=== PATIENT | female | born 1955 | race Caucasian/White ===

== ENCOUNTER 2017-06-12 13:36 | Inpatient (IN) | payer MEDICAID ==
[~2017-06-12] VITALS: Ht 167.6 cm; Wt 79.0 kg
--- NOTE | ~2017-06-12 | PR ---
[place], [place] PROGRESS NOTE NAME: SUDARSHAN DAVIES UNIT #: [id number] ROOM: 406 DOCTOR: NAMAN BONDS MD BIRTHDATE: [birth year] DOS: 06/14/2017 SUBJECTIVE: The patient about the same, somewhat better, try to speak a few words this morning. OBJECTIVE: VITAL SIGNS: Blood pressure 142/77, heart rate 73 beats per minute, breathing 20 times per minute, temperature 98 degrees Fahrenheit. GENERAL: Generalized weakness. All four extremity contractures. HEENT AND NECK: Exam within normal limits. CARDIOVASCULAR SYSTEM: Heart rate is regular in rate and rhythm. S1 and S2 normally audible. LUNGS: Clear to auscultation. ABDOMEN: Soft, nontender. No obvious organomegaly. Bowel sounds are present. IMPRESSION: 1. The patient is going to Behavioral Health Unit under the care of Dr. Jimmy Murphy for continued care and behavioral issues. 2. Major depression, recurrent, moderate, being treated. The patient on Vraylar now, started by Dr. Murphy. 3. Behavioral issues, schizoaffective disorder. The patient on mirtazapine. 4. Generalized anxiety disorder, treated with lorazepam as needed. 5. Advanced physical disability. The patient not eating and not walking. The patient working with physical therapy. NAMAN BONDS MD CM:PNTRANS [id number] NAMAN BONDS MD 06/14/17 1242 interface
--- NOTE | ~2017-06-12 | DS ---
[place], [place] DISCHARGE SUMMARY NAME: SUDARSHAN DAVIES UNIT #: [id number] ROOM: 406 DOCTOR: NAMAN BONDS MD BIRTHDATE: [birth year] DOS: 06/13/2017 DISCHARGE DIAGNOSES: 1. Major depression, recurrent. 2. Schizoaffective disorder. 3. History of cerebral palsy. 4. Generalized anxiety disorder. 5. 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 HOSPITAL COURSE: The patient was admitted through my office when brought over by her brother and [id number], who take care of the patient at home because the patient was unable to ambulate and had decreasing function and she was not talking, eating or cooperating. After admission, the patient was kept on IV fluids and psych consult was obtained with Dr. Murphy who has agreed to take her to the Behavioral Health Unit and changed some of her medications. The patient to be treated for: 1. Major depression, recurrent, moderate. 2. Moderate and inability to talk or communicate or walk. 3. Severe generalized anxiety disorder, to be treated and followed. Dr. Murphy has put her on Vraylar and mirtazapine. 4. Physical disability. The patient started on physical therapy. 5. Schizoaffective disorder, to be followed and treated by Dr. Murphy. LABORATORY DATA: Normal serum electrolytes. Hemoglobin 11.8, no leukocytosis. Urine cultures have been negative. Hypokalemia resolved with extra potassium supplements. Potassium level is normal at 3.6 now. DISCHARGE MANAGEMENT: Mirtazapine 15 mg at bedtime, Vraylar 1.5 mg at bedtime, ibuprofen 600 mg daily as needed for pain, lorazepam 0.5 mg b.i.d. [place], [place] DISCHARGE SUMMARY NAME: SUDARSHAN DAVIES UNIT #: [id number] ROOM: 406 DOCTOR: NAMAN BONDS MD BIRTHDATE: [birth year] NAMAN BONDS MD CM:DISCHARG 180 20 NAMAN BONDS MD 06/13/172219 interface
--- NOTE | ~2017-06-12 | CON ---
[place], [place] REPORT OF CONSULTATION NAME: SUDARSHAN DAVIES UNIT #: [id number] ROOM: 406 DOCTOR: JACOBO DAVIS MD BIRTHDATE: [birth year] DOS: 06/13/2017 CHIEF COMPLAINT: The patient was nonverbal. HISTORY OF PRESENT ILLNESS: This is a 62-year-old white female who is a patient of Dr. Hernandez. The patient was brought to the emergency room at [facility] due to worsening depression and inability to care for herself. Apparently per the patient's family, the patient has been not eating. She has not been attending to her ADLs and has not been taking her medications necessarily as prescribed. The patient has had trouble ambulating as well. She has been battling a UTI since May and this seems to be exacerbating her level of ability to function. The patient was admitted to the medical floor to further evaluate for her UTI and for sepsis as well as to attempt to stabilize and to determine if a further psychiatric admission is necessary. PAST MEDICAL HISTORY: Remarkable for reported history of schizophrenia. The patient also has a significant history of frequent UTIs. Most recently, she has been prescribed Lexapro 20 mg daily, Risperdal 0.25 mg daily and Abilify 30 mg daily. MENTAL STATUS: Limited by the patient's level of somnolence. I attempted on multiple occasions to engage her, but to no avail. DIAGNOSIS: Major depression, recurrent, rule out schizoaffective disorder. PLAN: I have discontinued her current psychotropic regimens as they do seem to be ineffective. I will start her on Remeron 15 mg at bedtime as this will greatly aid sleep and definitely improve appetite. I also will start her on Vraylar 1.5 mg a day, would prefer one antipsychotic as to multiple particular antipsychotics has mood stabilizing effects and does tend to improve cognitive status as well. Given her level of decompensation, I do think a further stay on the U is warranted. Once you feel that she is medically stabilized, I would be happy to admit to the U for further treatment and management. JACOBO DAVIS MD CM:CONSTR:REPORT OF CONSULTATION 1000 06/13/17 1058 interface
--- NOTE | ~2017-06-12 | WRIGHTHP ---
[place], [place] PATIENT HISTORY AND PHYSICAL EXAM NAME: SUDARSHAN DAVIES UNIT #: [id number] ROOM: 406 DOCTOR: NAMAN BONDS MD BIRTHDATE: [birth year] DOS: 06/12/2017 HISTORY OF PRESENT ILLNESS: The patient is a 62-year-old female with a past medical history of: 1. Cerebral palsy. 2. History of schizophrenia, psychosis and mental confusion. 3. History of generalized anxiety disorder. 4. History of major depression, recurrent, moderate. 5. Physical disability with chronic contractures in her extremities, causing difficulty with ambulation. The patient presented to my office today brought over by her brother and [id number], who take care of the patient at home. The patient had been refusing to eat and walk and getting weaker and not cooperative with treatment and requiring full help with activities of daily living. This is a significant deterioration from her regular self. Family is unable to take care of her at home anymore and they are looking for long-term placement. The patient was taken to [facility] Emergency Department, from where she was sent home because they said they could not help her in any way. Since the patient's family is unable to take care of her anymore at home they brought her to my office in a wheelchair. REVIEW OF SYSTEMS: LUNGS: No increasing shortness of breath. GASTROINTESTINAL: The patient not eating, otherwise no other complaints. CARDIOVASCULAR: No chest pains or palpitations. FAMILY HISTORY: Noncontributory. SOCIAL HISTORY: The patient lives at home with her brother and [id number]. HOME MEDICATIONS: Risperidone, ibuprofen, Abilify, lorazepam, and Lexapro. ALLERGIES: No known drug allergies. PHYSICAL EXAMINATION: GENERAL: Awake, alert, not communicating, looking quite weak. HEENT AND NECK: Extraocular movements are intact. Sclerae are anicteric. Oral mucosa is moist and clean. No obvious facial weakness. Neck is supple without any lymphadenopathy. No thyromegaly. No JVD. No carotid arterial bruits. LUNGS: Clear to auscultation. No wheezing. No rhonchi. CARDIOVASCULAR SYSTEM: Heart rate is regular in rate and rhythm. S1 and S2 normally audible. No significant murmur or any other abnormal cardiac sounds. ABDOMEN: Soft, nontender. No obvious organomegaly. Bowel sounds are present. No obvious herniation. EXTREMITIES: Without significant cyanosis or edema. Warm to touch. CENTRAL NERVOUS SYSTEM: Has all four extremity contractures and sitting in a wheelchair, also generalized weakness. LABORATORY DATA: Normal serum electrolytes, except for potassium low at 3.4. [place], [place] PATIENT HISTORY AND PHYSICAL EXAM NAME: SUDARSHAN DAVIES UNIT #: [id number] ROOM: 406 DOCTOR: NAMAN BONDS MD BIRTHDATE: [birth year] No leukocytosis. Normal CBC and platelets. Urine drug screen was negative. IMPRESSION AND PLAN: 1. The patient with schizophrenia and history of psychosis with difficulty in functioning and severe problem with activity of daily living. The patient not able to ambulate and not eating. Plan to admit her to [facility] and consult Dr. Murphy, the psychiatrist and Psych Art Educator along with case management to try and get her placement. 2. Schizophrenia and psychosis. The patient continued on Risperdal and Abilify along with Lexapro and Dr. Murphy, the psychiatrist to follow. 3. Inability to ambulate. The patient to work with Physical Therapy. 4. Generalized anxiety disorder. The patient continued on lorazepam as needed. NAMAN BONDS MD CM:HISPHYS:PATIENT HISTORY AND PHYSICAL EXAMINATION 1840 04 NAMAN BONDS MD 06/12/172203 interface
[2017-06-12 13:44] VITALS: BP 146/76
[2017-06-12 14:07] LABS: BASO % 0.1 % (0.0-1.0); EOS # 0.1 10*3/uL (0.0-0.4); EOS % 0.7 % (1.0-4.0); HEMATOCRIT 38.7 % (37.0-47.0); HEMOGLOBIN 12.5 g/dl (12.0-16.0); LYMPH # 0.8 10*3/uL (1.3-4.4); LYMPH % 8.7 % (27.0-41.0); MEAN CORPUSCULAR HGB 28.4 pg (27.0-31.0); MEAN CORPUSCULAR HGB CONC 32.3 g/dl (33.0-37.0); MEAN PLATELET VOLUME 10.3 fl (9.6-12.3); MONO # 0.3 10*3/uL (0.1-1.0); MONO % 3.6 % (3.0-9.0); NEUT # 7.6 10*3/uL (2.3-7.9); NEUT % 86.6 % (47.0-73.0); PLATELET COUNT AUTOMATED 316 10*3/uL (130-400); WHITE BLOOD COUNT 8.8 10*3/uL (4.8-10.8)
[2017-06-12 14:25] LABS: ACT PARTIAL THROMBO TIME 23.9 SECONDS (20.8-31.5)
[2017-06-12 14:27] LABS: ALBUMIN 3.7 gm/dl (3.1-4.5); ALKALINE PHOSPHATASE 137 U/L (45-117); BUN 20 mg/dl (7-24); CHLORIDE 108 mmol/L (98-107); CREATININE 0.57 mg/dL (0.55-1.02); ETHYL ALCOHOL < 3.0 mg/dl (<3); POTASSIUM 3.4 mmol/L (3.5-5.1); SGOT/AST 20 IU/L (3-35); SGPT/ALT 22 U/L (12-78); SODIUM 143 mmol/L (136-145); TOTAL PROTEIN 7.4 gm/dL (6.4-8.2)
[2017-06-12 14:28] LABS: BILIRUBIN NEGATIVE (NEGATIVE); BLOOD NEGATIVE (NEGATIVE); CLARITY SL CLOUDY (CLEAR); COLOR YELLOW (YELLOW); GLUCOSE NEGATIVE (NEGATIVE); KETONE TRACE (NEGATIVE); LEUKO ESTERASE NEGATIVE (NEGATIVE); NITRITE NEGATIVE (NEGATIVE); SPECIFIC GRAVITY >= 1.030 (1.005-1.030); UROBILINOGEN 0.2 E.U./dl (0.2-1.0)
[2017-06-12 14:33] LABS: URINE AMPHETAMINES < 1000 (1000ng/ml); URINE BARBITURATES < 200 (200ng/ml); URINE BENZODIAZEPINES < 200 (200ng/ml); URINE CANNABINOIDS (THC) < 50 (50ng/ml); URINE COCAINE < 300 (300ng/ml); URINE METHADONE < 300 (300ng/ml); URINE OPIATES < 300 (300ng/ml)
[2017-06-12 14:34] LABS: URINE PHENCYCLIDINE < 25 (25ng/ml)
[2017-06-12 14:38] LABS: BACTERIA 2+; MUCOUS TRACE; RBC 0-2 rbc/hpf (0-2)
[2017-06-12] MEDS ORDERED: RISPERDAL0.25 MG PO (15:08)
[2017-06-12] MEDS ORDERED: ATIVAN0.5 MG PO (15:09)
[2017-06-12] MEDS ORDERED: ABILIFY30 MG PO (15:09)
[2017-06-12] MEDS ORDERED: LEXAPRO20 MG PO (15:09)
[2017-06-12 15:30] VITALS: BP 142/76
[2017-06-12 16:15] VITALS: BP 150/78
[2017-06-12] MEDS ORDERED: IBUPROFEN600 MG PO (16:50)
[2017-06-12 20:00] VITALS: BP 143/65
[2017-06-13] VITALS: BP 118/82
[2017-06-13 07:08] LABS: BASO % 0.4 % (0.0-1.0); EOS # 0.1 10*3/uL (0.0-0.4); EOS % 1.9 % (1.0-4.0); HEMATOCRIT 36.8 % (37.0-47.0); HEMOGLOBIN 11.8 g/dl (12.0-16.0); LYMPH # 0.7 10*3/uL (1.3-4.4); LYMPH % 14.8 % (27.0-41.0); MEAN CELL VOLUME 87.6 fl (81.0-99.0); MEAN CORPUSCULAR HGB 28.1 pg (27.0-31.0); MEAN CORPUSCULAR HGB CONC 32.1 g/dl (33.0-37.0); MEAN PLATELET VOLUME 10.8 fl (9.6-12.3); MONO # 0.4 10*3/uL (0.1-1.0); MONO % 7.3 % (3.0-9.0); NEUT # 3.6 10*3/uL (2.3-7.9); NEUT % 75.4 % (47.0-73.0); PLATELET COUNT AUTOMATED 304 10*3/uL (130-400); WHITE BLOOD COUNT 4.8 10*3/uL (4.8-10.8)
[2017-06-13 07:22] LABS: BUN 18 mg/dl (7-24); CHLORIDE 108 mmol/L (98-107); CREATININE 0.54 mg/dL (0.55-1.02); POTASSIUM 3.6 mmol/L (3.5-5.1); SODIUM 141 mmol/L (136-145)
[2017-06-13 07:57] LABS: BILIRUBIN NEGATIVE (NEGATIVE); BLOOD NEGATIVE (NEGATIVE); CLARITY CLOUDY (CLEAR); COLOR YELLOW (YELLOW); GLUCOSE NEGATIVE (NEGATIVE); KETONE 2+ (NEGATIVE); LEUKO ESTERASE NEGATIVE (NEGATIVE); NITRITE POSITIVE (NEGATIVE); PH 6.5 (5.0-9.0); SPECIFIC GRAVITY 1.025 (1.005-1.030); UROBILINOGEN 0.2 E.U./dl (0.2-1.0)
[2017-06-13 08:00] VITALS: BP 133/68
[2017-06-13 08:52] LABS: BACTERIA 4+
[2017-06-13 12:00] VITALS: BP 146/77
[2017-06-13 16:00] VITALS: BP 152/77
[2017-06-13] MEDS ORDERED: VRAYLAR1.5 MG PO (18:00)
[2017-06-13] MEDS ORDERED: MIRTAZAPINE15 M2 PO (18:00)
[2017-06-13 20:00] VITALS: BP 148/68
[2017-06-14 08:00] VITALS: BP 142/77
[2017-06-14 16:00] VITALS: BP 126/76
[2017-06-15] MEDS ORDERED: CEFUROXIME AXE500 MG PO (21:54)
[2017-06-15] MEDS ORDERED: REMERON SOLTAB15 MG PO (21:56)
[2017-06-15] MEDS ORDERED: EXELON1 EACH T (21:56)
[2017-06-15] MEDS ORDERED: ABILIFY15 MG PO (21:57)
[2017-06-15] MEDS ORDERED: GEODON20 MG IM (21:58)
[2017-06-15] MEDS ORDERED: ATIVAN1 MG PO (21:58)
[2017-06-15] MEDS ORDERED: ATIVAN2 MG/1 ML IM (21:59)
== END 2017-06-14 17:05 | disposition home health service (06) | DRG 885 ==
LOC: ED 13:36 → EDHOLD 14:44 → 4E 14:44
PROVIDERS: Emergency Medicine; Internal Medicine
DX: F33.1 Major depressive disorder, recurrent, moderate (principal); F20.9 Schizophrenia, unspecified; R13.0 Aphagia; E87.6 Hypokalemia; G80.9 Cerebral palsy, unspecified; F41.1 Generalized anxiety disorder; R62.7 Adult failure to thrive; Z91.040 Latex allergy status; Z91.018 Allergy to other foods; Z87.440 Personal history of urinary (tract) infections; Z79.899 Other long term (current) drug therapy

== ENCOUNTER 2017-06-14 17:47 | Inpatient (IN) | payer MEDICAID ==
[~2017-06-14] VITALS: Ht 167.6 cm; Wt 78.9 kg
--- NOTE | ~2017-06-14 | CON ---
[place], [place] REPORT OF CONSULTATION NAME: SUDARSHAN DAVIES UNIT #: [id number] ROOM: 317 DOCTOR: TARI KERRNADEGE BIRTHDATE: [birth year] DOS: 06/15/2017 RAPID RESPONSE NOTE. TIME: 2134. I was called to evaluate the patient who was having seizure activity in the behavioral unit. The nurses reported that symptoms were sudden and the activity described was flexion of the arms and the legs in arrhythmic manner. The patient had been admitted because of a deterioration in overall function. She had a history of cerebral palsy and multiple different mental health diagnoses. 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 Gradually over time, some of the medications were reduced. Her symptoms of mental health problems appeared when she was in her teens and seemed to worsen after her father . She was unable to give any information to me, most of the information was obtained from the patient's family. On arrival, she was still having some seizure activity and there was evidence of injury to the mouth because the blood was coming out of the side of her mouth. Her pupils were small and she had nystagmus. There was no evidence for injury to the head or neck, only a very small puncture wound to the left upper lip. She had no upper teeth, but she did have some fractured lower teeth. NECK: Supple. CHEST: Clear. HEART: Regular and rhythmic. Mild tachycardia. ABDOMEN: Slightly rounded, soft, nontender. Bowel sounds were present and there were no masses and no bruits. EXTREMITIES: She had flexion contractures in all the major joints, which the family said was related to her, convincing the staff at the custodial that she could not walk. The patient was given Ativan 2 mg intravenously and seizure activity persisted, so she was given the second 2 mg of Ativan. Oxygen was administered. Blood sugar was obtained and was within normal range. She was given Keppra 1 g intravenously. Family said that she has never had seizures before, so I felt that this lady should come to the Emergency Room for further management and referral to a facility that has 24-hour neurological services available. I discussed this with the family and they were in agreement with the plan. The patient was deeply sedated from the Ativan. Nasal trumpet was placed after she arrived in the Emergency Room. The Emergency Room report is separate. DIAGNOSIS: New-onset seizure activity. [place], [place] REPORT OF CONSULTATION NAME: SUDARSHAN DAVIES UNIT #: [id number] ROOM: [facility] DOCTOR: TARI KERR,NADEGE BIRTHDATE: [birth year] NADEGE MARC MD CM:CONSTR:REPORT OF CONSULTATION 9 06/17/17 0910 interface
--- NOTE | ~2017-06-14 | WRIGHTHP ---
[place], [place] PATIENT HISTORY AND PHYSICAL EXAM NAME: SUDARSHAN DAVIES UNIT #: [id number] ROOM: 317 DOCTOR: JACOBO DAVIS MD BIRTHDATE: [birth year] DOS: 06/15/2017 INITIAL PSYCHIATRIC EVALUATION CHIEF COMPLAINT: The patient made eye contact, but did not speak. HISTORY OF PRESENT ILLNESS: This is a 62-year-old white female who was initially seen by myself on a psychiatric consult on the medical floor. The patient is a patient of Dr. Hernandez. She was brought to his office on the day of initial admission to the hospital by family members because she was not attending to her ADLs. She was not taking her medicine. She was not eating or drinking properly and had a significant decline in her overall ability to function. Upon evaluating her, he felt that she was medically compromised and sent her to [facility] where she was admitted to the medical floor and found to have a significant UTI and sepsis. Upon stabilizing her doctor David felt that she was medically clear to go to the U for further psychiatric intervention. She is admitted now to rule out any organic factors, to attempt to stabilize on medication, to engage in individual and casarez milieu activity, determining then the least restrictive environment post-discharge. PAST MEDICAL HISTORY: Remarkable for a history of schizophrenia, frequent UTIs and cerebral palsy. MENTAL STATUS: My mental status is limited due to her inability or desire not to speak. Nurses did report she has been communicating some and did get up to have breakfast and then showered. The nurse's aide did mention that she seemed rather tired after eating and showering, so this may not necessarily be volitional, just pure somnolence. She was not agitated in any way. There was no mood lability. DIAGNOSIS: Schizoaffective disorder. PLAN: I have already started her on Remeron SolTab and Risperdal M-Tab to try to improve compliance. Once I know that she is compliant with the Risperdal, I may load with Invega Sustenna to improve compliance. We will continue to determine whether or not she requires more supervision than she is having and whether a long-term care placement is warranted. Based on her decline both with ADLs and cognition, I will go ahead and start Exelon patch 4.6 mg daily to attempt to improve these. We will engage in individual and casarez milieu activity, returning to the least restrictive environment when stable. [place], [place] PATIENT HISTORY AND PHYSICAL EXAM NAME: SUDARSHAN DAVIES UNIT #: [id number] ROOM: [facility] DOCTOR: JACOBO DAVIS MD BIRTHDATE: [birth year] JACOBO DAVIS MD CM:HISPHYS:PATIENT HISTORY AND PHYSICAL EXAMINATION [id number] JACOBO DAVIS MD 06/15/17 1120 interface
[~2017-06-14 17:47] MED LIST: ABILIFY30 MG PO; ATIVAN0.5 MG PO; IBUPROFEN600 MG PO; LEXAPRO20 MG PO; MIRTAZAPINE15 M2 PO; RISPERDAL0.25 MG PO; VRAYLAR1.5 MG PO
[2017-06-14 18:47] VITALS: BP 144/76
[2017-06-14 20:29] VITALS: BP 144/86
[2017-06-14 23:45] VITALS: BP 144/76
[2017-06-15 07:33] VITALS: BP 154/82
[2017-06-15 07:51] LABS: BASO % 0.3 % (0.0-1.0); EOS # 0.1 10*3/uL (0.0-0.4); EOS % 1.1 % (1.0-4.0); HEMATOCRIT 39.1 % (37.0-47.0); HEMOGLOBIN 12.5 g/dl (12.0-16.0); LYMPH # 0.9 10*3/uL (1.3-4.4); LYMPH % 14.7 % (27.0-41.0); MEAN CELL VOLUME 87.9 fl (81.0-99.0); MEAN CORPUSCULAR HGB 28.1 pg (27.0-31.0); MEAN PLATELET VOLUME 10.6 fl (9.6-12.3); MONO # 0.4 10*3/uL (0.1-1.0); MONO % 6.1 % (3.0-9.0); NEUT # 4.8 10*3/uL (2.3-7.9); NEUT % 77.6 % (47.0-73.0); PLATELET COUNT AUTOMATED 302 10*3/uL (130-400); RED BLOOD COUNT 4.45 10*6/uL (4.10-5.10); RED CELL DISTRI WIDTH 13.9 % (0-14.5); WHITE BLOOD COUNT 6.2 10*3/uL (4.8-10.8)
[2017-06-15 08:11] LABS: ALBUMIN 3.4 gm/dl (3.1-4.5); ALKALINE PHOSPHATASE 136 U/L (45-117); BUN 9 mg/dl (7-24); CHLORIDE 109 mmol/L (98-107); CHOLESTEROL 148 mg/dL (<200); HDL CHOLESTEROL 53 mg/dl (40-60); LDL CHOLESTEROL 83 mg/dL (9-159); POTASSIUM 3.5 mmol/L (3.5-5.1); SGOT/AST 20 IU/L (3-35); SGPT/ALT 21 U/L (12-78); SODIUM 143 mmol/L (136-145); TRIGLYCERIDES 62 mg/dl (<150); VLDL CHOLESTEROL 12 mg/dL (6-40)
[2017-06-15 09:16] LABS: VITAMIN D, 25-HYDROXY 24.7 ng/mL (30-100)
[2017-06-15 19:39] VITALS: BP 157/70
[2017-06-15] MEDS ORDERED: CEFUROXIME AXE500 MG PO (21:54)
[2017-06-15] MEDS ORDERED: EXELON1 EACH T (21:56)
[2017-06-15] MEDS ORDERED: REMERON SOLTAB15 MG PO (21:56)
[2017-06-15] MEDS ORDERED: ABILIFY15 MG PO (21:57)
[2017-06-15] MEDS ORDERED: GEODON20 MG IM (21:58)
[2017-06-15] MEDS ORDERED: ATIVAN1 MG PO (21:58)
[2017-06-15] MEDS ORDERED: ATIVAN2 MG/1 ML IM (21:59)
== END 2017-06-15 21:52 | disposition other institution (70) | DRG 885 ==
LOC: 3N 17:47
PROVIDERS: Psychiatry & Neurology Psychiatry
DX: F20.9 Schizophrenia, unspecified (principal); R56.9 Unspecified convulsions; F33.1 Major depressive disorder, recurrent, moderate; G80.9 Cerebral palsy, unspecified; F41.1 Generalized anxiety disorder; M24.50 Contracture, unspecified joint; R13.0 Aphagia; E87.6 Hypokalemia; R62.7 Adult failure to thrive; Z79.899 Other long term (current) drug therapy; Z91.040 Latex allergy status; Z91.018 Allergy to other foods; Z87.440 Personal history of urinary (tract) infections

== ENCOUNTER 2017-06-15 21:57 | Emergency (ER) | payer MEDICAID ==
[~2017-06-15] VITALS: Wt 90.7 kg
[~2017-06-15 21:57] MED LIST changes: +ABILIFY15 MG PO; +CEFUROXIME AXE500 MG PO; +EXELON1 EACH T; +REMERON SOLTAB15 MG PO
[2017-06-15] MEDS ORDERED: GEODON20 MG IM (21:58)
[2017-06-15] MEDS ORDERED: ATIVAN1 MG PO (21:58)
[2017-06-15] MEDS ORDERED: ATIVAN2 MG/1 ML IM (21:59)
[2017-06-15 22:17] LABS: HEMATOCRIT 40.8 % (37.0-47.0); HEMOGLOBIN 12.5 g/dl (12.0-16.0); MEAN CELL VOLUME 90.5 fl (81.0-99.0); MEAN CORPUSCULAR HGB 27.7 pg (27.0-31.0); MEAN CORPUSCULAR HGB CONC 30.6 g/dl (33.0-37.0); MEAN PLATELET VOLUME 11.2 fl (9.6-12.3); PLATELET COUNT AUTOMATED 300 10*3/uL (130-400); RED BLOOD COUNT 4.51 10*6/uL (4.10-5.10); RED CELL DISTRI WIDTH 13.9 % (0-14.5); WHITE BLOOD COUNT 8.7 10*3/uL (4.8-10.8)
[2017-06-15 22:23] LABS: ACT PARTIAL THROMBO TIME 26.7 SECONDS (20.8-31.5)
[2017-06-15 22:29] LABS: ALBUMIN 3.3 gm/dl (3.1-4.5); ALKALINE PHOSPHATASE 131 U/L (45-117); BUN 11 mg/dl (7-24); CHLORIDE 108 mmol/L (98-107); CREATININE 0.65 mg/dL (0.55-1.02); SGOT/AST 23 IU/L (3-35); SGPT/ALT 21 U/L (12-78); SODIUM 143 mmol/L (136-145); TOTAL PROTEIN 6.8 gm/dL (6.4-8.2)
[2017-06-15 22:30] LABS: TROPONIN I < 0.015 ng/ml (<0.045)
[2017-06-15 22:38] LABS: BASOPHILS 1 % (0-1); PLATELET SUFFICIENCY NORMAL (NORMAL); TOTAL CELLS COUNTED 100 #CELLS
[2017-06-15 22:39] LABS: BURR CELLS FEW; OVALOCYTES FEW
[2017-06-16] VITALS: BP 140/70
[2017-06-16 00:35] LABS: URINE AMPHETAMINES < 1000 (1000ng/ml); URINE BARBITURATES < 200 (200ng/ml); URINE BENZODIAZEPINES < 200 (200ng/ml); URINE CANNABINOIDS (THC) < 50 (50ng/ml); URINE COCAINE < 300 (300ng/ml); URINE METHADONE < 300 (300ng/ml); URINE OPIATES < 300 (300ng/ml)
[2017-06-16 00:37] LABS: URINE PHENCYCLIDINE < 25 (25ng/ml)
== END 2017-06-16 00:50 | disposition short-term general hospital (02) ==
LOC: ED 21:57
PROVIDERS: Emergency Medicine Emergency Medical Services
DX: R56.9 Unspecified convulsions (principal); F32.9 Major depressive disorder, single episode, unspecified; F20.9 Schizophrenia, unspecified; F41.8 Other specified anxiety disorders; Z79.899 Other long term (current) drug therapy

== ENCOUNTER 2022-02-28 01:01 | Emergency (ER) | payer MEDICAID ==
[~2022-02-28 01:01] MED LIST changes: +ABILIFY20 MG PO; +ARIPIPRAZOLE10 MG PO; +ATIVAN1 MG PO; +ATIVAN2 MG/1 ML IM; +GEODON20 MG IM; +Ipratropium Brom3 ML NEB; +MIRTAZAPINE45 MG PO; +PROVIGIL100 MG PO; +PULMICORT RESP0.5 MG NEB; +RISPERIDONE1 MG PO; +TAB-A-VITE1 EACH PO
[2022-02-28 01:32] LABS: BASO % 0.5 % (0.0-1.0); EOS # 0.3 10*3/uL (0.0-0.4); EOS % 4.6 % (1.0-4.0); HEMATOCRIT 24.7 % (37.0-47.0); LYMPH # 1.5 10*3/uL (1.3-4.4); LYMPH % 26.2 % (27.0-41.0); MEAN CORPUSCULAR HGB 20.7 pg (27.0-31.0); MEAN PLATELET VOLUME 9.4 fl (9.6-12.3); MONO # 0.4 10*3/uL (0.1-1.0); MONO % 7.5 % (3.0-9.0); NEUT # 3.6 10*3/uL (2.3-7.9); PLATELET COUNT AUTOMATED 459 10*3/uL (130-400); RED BLOOD COUNT 3.58 10*6/uL (4.10-5.10); WHITE BLOOD COUNT 5.8 10*3/uL (4.8-10.8)
[2022-02-28 01:47] LABS: ALKALINE PHOSPHATASE 85 U/L (46-116); BUN 22 mg/dl (9-23); CHLORIDE 107 mmol/L (98-107); CREATININE 0.42 mg/dL (0.55-1.02); LIPASE 69 U/L (12-53); SODIUM 139 mmol/L (136-145); TOTAL PROTEIN 6.2 gm/dL (6.0-8.0)
[2022-02-28 01:54] LABS: SGPT/ALT < 7 U/L (10-49)
[2022-02-28 08:40] VITALS: BP 117/66
== END 2022-02-28 08:47 ==
LOC: ED 01:01
PROVIDERS: Internal Medicine
DX: K59.00 Constipation, unspecified (principal); D50.9 Iron deficiency anemia, unspecified; E44.1 Mild protein-calorie malnutrition